=== PATIENT | male | born 1950 | race Caucasian/White ===

== ENCOUNTER 2016-06-07 | Outpatient (CLI) | payer MEDICARE, OTHER | END 2016-06-07 19:52 | disposition short-term general hospital (02) | CPT/HCPCS: A0425; A0426 ==

== ENCOUNTER 2016-06-07 09:30 | Emergency (ER) | payer MEDICARE, OTHER ==
[2016-06-07] MEDS ORDERED: POTASSIUM CHLOR 20 MEQ/100 ML 100 ML IV ONE ×2 (11:23→17:14)
[2016-06-07] MEDS ORDERED: POTASSIUM CHLORIDE 20 MEQ TABLET PO ONE (11:23)
[2016-06-07] MEDS ORDERED: FAMOTIDINE 20 MG/2 ML VIAL ONE (11:32)
[2016-06-07] MEDS ORDERED: cefTRIAXone 1 GM VIAL ONE (17:14)
[2016-06-07] MEDS ORDERED: OCTREOTIDE 500 MCG in SODIUM CHLORIDE 0.9% 100ML 95 ML IV STA (17:29)
[2016-06-07] MEDS ORDERED: OCTREOTIDE 100 MCG/ML VIAL ONE (17:34)
[2016-06-07] MEDS ORDERED: OCTREOTIDE 100 MCG/ML VIAL IV STA (17:37)
== END 2016-06-07 18:30 | disposition short-term general hospital (02) ==
DX: K92.1 Melena (principal); D64.9 Anemia, unspecified; E87.6 Hypokalemia; R18.8 Other ascites; K74.60 Unspecified cirrhosis of liver; I45.10 Unspecified right bundle-branch block
CPT/HCPCS: 36415; 36430; 74176; 80053; 83690; 84132; 85014; 85018; 85025; 85610; 85730; 86850; 86900; 86901; 86920; 93005; 96361; 96365; 96366; 96367; 96368; 96375; 96376; 99284; A9270; J2354; P9016

== ENCOUNTER 2017-09-04 07:28 | Outpatient (CLI) | payer MEDICARE, OTHER ==
[2017-09-04 08:12] LABS: CREATININE 1.3 mg/dL (0.6-1.2)
[2017-09-04] MEDS ORDERED: IOPAMIDOL-300 100 ML VIAL ONE (08:35)
[2017-09-04] MEDS ORDERED: IOPAMIDOL-300 100 ML VIAL IVP ONE (09:27)
--- NOTE | 2017-09-04 15:07 | CT Report ---
EXAM: LEFT ELBOW CT WITHOUT AND WITH CONTRAST EXAM DATE: 09/04/2017 09:28 AM. CLINICAL HISTORY: Left Antecubital area mass. Seems solid vs cystic. COMPARISON: None. TECHNIQUE: Thin-section axial images were acquired of the elbow before and after administration of in travenous contrast. IV contrast: 100 mL Isovue-300. Post-processing: Coronal and sagittal reformats. Other: None. In accordance with CT protocol optimization, one or more of the following dose reduction techniques w ere utilized for this exam: automated exposure control, adjustment of mA and/or KV based on patient s ize, or use of iterative reconstructive technique. FINDINGS: Bones: No fracture or bone lesion. Joints: Mild degenerative changes at the joint, most prominent at the ulnar trochlear joint. No large joint effusion. Musculature: Heterogeneous mass present in the musculature along the anterior and radial aspect of th e distal humerus measuring 6.7 x 7.0 x 8.0 cm. Localization limited on CT, particularly due to size. This appears centered within the brachialis or brachioradialis muscle with mass effect on the biceps muscle. Central low attenuation present, suggestive of necrosis with heterogeneous enhancement and pr ominent vascularity in the periphery. Mass results in mass effect on the radial neurovascular bundle. Evaluation of involvement of the neur ovascular bundle limited on CT. Other: Subcutaneous soft tissues are unremarkable. IMPRESSION: 1. An 8.0 cm heterogeneous enhancing mass with likely central necrosis centered in the musculature ov er the anterior and radial aspect distal humerus, concerning for soft tissue malignancy such as sarco ma. Hematoma also in the differential although thought less likely given the extent of peripheral vas cularity and enhancement. 2. Lesion results in mass effect on the radial neurovascular bundle. Evaluation for involvement of th e neurovascular bundle limited on CT. May consider MRI with IV contrast if patient is able for furthe r characterization and surgical planning. Findings discussed with Dr. Chen, ordering provider at 3 PM on 09/04/[address] Nahed RAGSDALE Referring Provider Line: [phone] SITE ID: [id number]
== END 2017-09-04 07:29 | disposition home or self-care (01) ==
LOC: LAB 07:28
PROVIDERS: ATTEND Family Medicine
DX: R22.32 Localized swelling, mass and lump, left upper limb (principal)
CPT/HCPCS: 36415; 73202; 82565; Q9967

== ENCOUNTER 2022-01-15 09:07 | Outpatient (CLI) | payer MEDICARE, OTHER | END 2022-01-15 09:08 | disposition home or self-care (01) | LOC: LAB.N 09:07 | PROVIDERS: ATTEND Ophthalmology | DX: Z01.812 Encounter for preprocedural laboratory examination (principal); H25.89 Other age-related cataract; Z20.822 Contact with and (suspected) exposure to COVID-19 ==

== ENCOUNTER 2022-01-16 08:52 | Day surgery (SDC) | payer MEDICARE, OTHER ==
[~2022-01-16 08:52] MED LIST: CYCLOPENTOLATE 1% OPHTH DROPS 2 ML ONE; KETOROLAC 0.45% OPHTH DROPS ONE; PHENYLEPHRINE 2.5% OPHTH 2 ML DROPS ONE; PROPARACAINE 0.5% OPHTH DROPS 15 ML ONE
[2022-01-16] MEDS ORDERED: LACTATED RINGERS 1,000 ML IV ONE (08:57)
--- NOTE | 2022-01-16 09:51 | ANESTHESIA ---
Pre-Anesthesia VS, & Labs - Diagnosis right eye cataract - Procedure right eye cataract extraction with IOL implant Vital Signs: Temp Pulse Resp BP Pulse Ox 36.2 C L 94 20 145/88 H 100 01/16/22 09:06 01/16/22 09:06 01/16/22 09:06 01/16/22 09:06 01/16/22 09:06 Height: 5 ft 10 in Weight (kg): 62 kg Body Mass Index: 19.5 BMI Classification: Healthy weight - NPO >8 hours Home Medications and Allergies Allergies/Adverse Reactions: Allergies Allergy/AdvReac Type Severity Reaction Status Date / Time No Known Drug Allergies Allergy Verified 01/16/22 09:13 Anes History & Medical History - Anesthetic History Anesthesia Complications: reports: No previous complications - Medical History Cardiovascular: reports: None Pulmonary: reports: None Gastrointestinal: reports: GERD, Cirrhosis Urinary: reports: None Neuro: reports: Other (nerve injury left arm) Musculoskeletal: reports: None Endocrine/Autoimmune: reports: None Skin: reports: Other Smoking Status: Current every day smoker (1 pack per day) Psychosocial: reports: Alcohol (2-3 beers every other day) 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
[2022-01-16] MEDS ORDERED: MIDAZOLAM 2 MG/2 ML VIAL ONE (10:05)
[2022-01-16] MEDS ORDERED: TRYPAN BLUE 0.5 ML SYRINGE IO ONE ×2 (10:32→10:37)
[2022-01-16] MEDS ORDERED: BSS/LIDOCAINE/EPINEPHRINE 1 ML SYRINGE IO ONE (10:33)
[2022-01-16] MEDS ORDERED: TIMOLOL 0.5% OPHTH DROPS OPTH ONE (10:33)
[2022-01-16] MEDS ORDERED: EPINEPHrine 1 MG/ML AMP IR ONE (10:33)
[2022-01-16] MEDS ORDERED: BRIMONIDINE 0.2% OPHTH DROPS 5 ML OPTH ONE (10:33)
[2022-01-16] MEDS ORDERED: VANCOMYCIN OPHTH (TOPICAL) 10 MG/ML SYRINGE TOP ONE (10:34)
[2022-01-16] MEDS ORDERED: TRIAMCIN/MOXIFLOX OPHTHALMIC 0.6 ML VIAL IO ONE ×2 (10:34→11:12)
[2022-01-16] MEDS ORDERED: PROPARACAINE 0.5% OPHTH DROPS 15 ML RIGHTEYE ONE (10:34)
[2022-01-16] MEDS ORDERED: fentaNYL 100 MCG/2 ML VIAL ONE (10:36)
[2022-01-16] MEDS ORDERED: LACTATED RINGERS 900 ML IV ONE (10:44)
--- NOTE | 2022-01-16 10:46 | OPERATIVE REPORT ---
Operative Report - Other Other Information/Narrative: Date of Surgery: 01/16/22 Preop Dx: Visually significant cataract right eye. This was the first cataract surgery. Postop Dx: Same Procedure: Phacoemulsification with posterior chamber intraocular lens implant right eye Surgeon: Dr. Artemio Starkey Anesthesia: Monitored anesthesia care Complications: None Operative Indications: This is a 71-year-old M with progressive vision loss in the right eye due to 4+ brunescent nuclear sclerotic and 4+ cortical mature cataract. Best corrected visual acuity was hand motion with glare to light perception vision in the right eye. Indications for surgery were: - Overall decrease in vision - Difficulty reading - Difficulty seeing words, closed captions, or game scores on TV - Difficulty seeing street signs - Difficulty driving in low light or at night - Difficulty driving at night because of headlights from other vehicles - Difficulty with glare or bright lights in any situation The patient was consented at length concerning the risks and benefits of cataract surgery after which the patient expressed a desire to proceed with surgery. Operative Procedure: The patient was taken into OR#3 and placed under monitored anesthesia care. A surgical time-out was conducted confirming correct patient, correct procedure, and correct surgical site. The patient was given topical anesthesia and then prepped and draped in the usual sterile fashion. The eye was entered at the 6 and 3 oclock positions. Intracameral Shugarcaine was injected into the anterior chamber followed by a dispersive viscoelastic. A continuous-tear curvilinear capsulorhexis was performed. The nucleus was hydrodissected and phacoemulsified. The cortex was evacuated using automated infusion and aspiration. However, a zonular dehiscence occurred temporally toward the end of cortical clean-up. No vitreous presented and it was determined that a one-piece IOL would likely be stable in the capsule. A cohesive viscoelastic was injected into the capsular bag and a 24.5 diopter intraocular lens was inserted into the bag. Infusion and aspiration were used to evacuate the viscoelastic materials from the eye. The wounds were hydrated and the eye inflated to physiologic pressure using balanced salt solution. Approximately 0.25ml of a mixture of triamcinolone and moxifloxacin was injected trans-sclerally into the vitreous in the inferotemporal quadrant using a 30 gauge cannula. An additional 0.55ml of a mixture of triamcinolone and vancomycin was injected subconjunctivally in the superior quadrant for infection and inflammation prophylaxis. Wound integrity was checked with Weck-Cally sponges and there was no vitreous to either wound. . The patient was taken from the operating room in good condition and given post-op instructions.
[2022-01-16 11:09] VITALS: BP 120/70
[2022-01-16] MEDS ORDERED: TIMOLOL 0.5% OPHTH DROPS ONE (11:12)
[2022-01-16] MEDS ORDERED: BRIMONIDINE 0.2% OPHTH DROPS 5 ML ONE (11:12)
[2022-01-16] MEDS ORDERED: EPINEPHrine 1 MG/ML AMP ONE (11:12)
[2022-01-16] MEDS ORDERED: VANCOMYCIN OPHTH (TOPICAL) 10 MG/ML SYRINGE ONE (11:12)
[2022-01-16] MEDS ORDERED: BSS/LIDOCAINE/EPINEPHRINE 1 ML VIAL ONE (11:12)
--- NOTE | 2022-01-16 14:30 | ANESTHESIA POST OP EVALUATION ---
Anesthesia Post Eval - Post Anesthesia Eval Vitals: Last Vital Signs Temp 36.8 C 01/16/22 11:08 Pulse 82 01/16/22 11:08 Resp 6 L 01/16/22 11:08 BP 120/70 01/16/22 11:08 Pulse Ox 100 01/16/22 11:08 CV Function Including HR & BP: Stable Pain Control: Satisfactory Nausea & Vomiting: Negative Mental Status: Baseline Respiratory Status: Airway Patent Hydration Status: Satisfactory Anesthesia Complications: None
== END 2022-01-16 08:53 | disposition home or self-care (01) ==
LOC: SDS 08:52
PROVIDERS: ATTEND Ophthalmology
DX: H25.89 Other age-related cataract (principal); F17.200 Nicotine dependence, unspecified, uncomplicated
CPT/HCPCS: 66984; A9270; J3490; J7120

== ENCOUNTER 2022-05-21 07:56 | Outpatient (CLI) | payer MEDICARE, OTHER | END 2022-05-21 07:57 | disposition home or self-care (01) | LOC: LAB.N 07:56 | PROVIDERS: ATTEND Ophthalmology | DX: Z01.812 Encounter for preprocedural laboratory examination (principal); H25.812 Combined forms of age-related cataract, left eye; Z20.822 Contact with and (suspected) exposure to COVID-19 ==

== ENCOUNTER 2022-05-22 06:28 | Day surgery (SDC) | payer MEDICARE, OTHER ==
--- NOTE | 2022-05-22 06:53 | ANESTHESIA ---
Pre-Anesthesia VS, & Labs - Diagnosis L senile combined cataract - Procedure extraction L cataract wIOL Height: 5 ft 10 in - NPO >8 hours - Lab Results Lab results reviewed: No Home Medications and Allergies Allergies/Adverse Reactions: Allergies Allergy/AdvReac Type Severity Reaction Status Date / Time No Known Drug Allergies Allergy Verified 05/22/22 07:26 Anes History & Medical History - Anesthetic History Anesthesia Complications: reports: No previous complications Family history of Anesthesia Complications: Denies Family history of Malignant Hyperthermia: Denies - Medical History Cardiovascular: reports: None Pulmonary: reports: None Gastrointestinal: reports: GERD, Cirrhosis Urinary: reports: None Neuro: reports: Other (nerve injury left arm) Musculoskeletal: reports: None Endocrine/Autoimmune: reports: None Skin: reports: Other Smoking Status: Current every day smoker (1 pack per day) - Surgical History Eyes Ears Nose Throat (EENT): reports: Cataracts Exam General: Alert, Oriented x3, Cooperative Dental: Poor dentition Mouth Openin Fingerbreadth Neck Mobility: Normal Mallampati classification: II Thyromental Distance: 4-6 cm Respiratory: Lungs clear, Normal breath sounds, No respiratory distress Cardiovascular: Regular rate Neurological: Normal speech Mental/Cognitive Status: Alert/Oriented X3, Normal for patient Cognitive Status: Within normal limits Plan Anesthesia Type: MAC Consent for Procedure(s) Verified and Reviewed: Yes Code Status: Attempt Resuscitation ASA classification: 2-Mild systemic disease Is this case an emergency?: No
[2022-05-22] MEDS ORDERED: LACTATED RINGERS 1,000 ML IV ONE ×2 (06:56→08:36)
[2022-05-22] MEDS ORDERED: MIDAZOLAM 2 MG/2 ML VIAL ONE (07:22)
[2022-05-22] MEDS ORDERED: fentaNYL 100 MCG/2 ML VIAL ONE (07:55)
[2022-05-22] MEDS ORDERED: BRIMONIDINE 0.2% OPHTH DROPS 5 ML OPTH ONE (08:11)
[2022-05-22] MEDS ORDERED: TIMOLOL 0.5% OPHTH DROPS OPTH ONE (08:12)
[2022-05-22] MEDS ORDERED: BSS/LIDOCAINE/EPINEPHRINE 1 ML SYRINGE IO ONE (08:12)
[2022-05-22] MEDS ORDERED: VANCOMYCIN OPHTH (TOPICAL) 10 MG/ML SYRINGE TOP ONE (08:12)
[2022-05-22] MEDS ORDERED: EPINEPHrine 1 MG/ML AMP IR ONE (08:12)
[2022-05-22] MEDS ORDERED: PROPARACAINE 0.5% OPHTH DROPS 15 ML EACHEYE ONE (08:12)
[2022-05-22] MEDS ORDERED: TRIAMCIN/MOXIFLOX OPHTHALMIC 0.6 ML VIAL IO ONE ×3 (08:12→10:36)
--- NOTE | 2022-05-22 08:27 | OPERATIVE REPORT ---
Operative Report - Other Other Information/Narrative: Date of Surgery: 05/22/22 Preop Dx: Visually significant cataract left eye. Cataract surgery was performed in the right eye on . Postop Dx: Same Procedure: Phacoemulsification with posterior chamber intraocular lens implant left eye Surgeon: Dr. Artemio Starkey Anesthesia: Monitored anesthesia care Complications: None Operative Indications: This is a 72-year-old M with progressive vision loss in the left eye due to 3+ nuclear sclerotic and 3+ posterior subcapsular cataract. Best corrected visual acuity was 20/30 with glare to light perception vision in the left eye. Indications for surgery were: - Overall decrease in vision - Difficulty reading - Difficulty seeing words, closed captions, or game scores on TV - Difficulty driving in low light or at night - Difficulty driving at night because of headlights from other vehicles - Difficulty with glare or bright lights in any situation The patient was consented at length concerning the risks and benefits of cataract surgery after which the patient expressed a desire to proceed with surgery. Operative Procedure: The patient was taken into OR#3 and placed under monitored anesthesia care. A surgical time-out was conducted confirming correct patient, correct procedure, and correct surgical site. The patient was given topical anesthesia and then prepped and draped in the usual sterile fashion. The eye was entered at the 6 and 3 oclock positions. Intracameral Shugarcaine was injected into the anterior chamber followed by a dispersive viscoelastic. A continuous-tear curvilinear capsulorhexis was performed. The nucleus was hydrodissected and phacoemulsified. The cortex was evacuated using automated infusion and aspiration. A cohesive viscoelastic was injected into the capsular bag and a 24.5 diopter intraocular lens was inserted into the bag. Infusion and aspiration were used to evacuate the viscoelastic materials from the eye. The wounds were hydrated and the eye inflated to physiologic pressure using balanced salt solution. Approximately 0.25ml of a mixture of triamcinolone and moxifloxacin was injected trans-sclerally into the vitreous in the inferotemporal quadrant using a 30 gauge cannula. An additional 0.55ml of a mixture of triamcinolone and moxifloxacin was injected subconjunctivally in the superior quadrant for infection and inflammation prophylaxis. Wound integrity was checked with Weck-Cally sponges. The patient was taken from the operating room in good condition and given post-op instructions.
[2022-05-22 08:39] VITALS: BP 100/73
--- NOTE | 2022-05-22 09:13 | ANESTHESIA POST OP EVALUATION ---
Anesthesia Post Eval - Post Anesthesia Eval Vitals: Last Vital Signs Temp 36.5 C 05/22/22 08:38 Pulse 90 05/22/22 08:38 Resp 16 05/22/22 08:38 BP 100/73 05/22/22 08:38 Pulse Ox 99 05/22/22 08:38 O2 Flow Rate 0 05/22/22 06:56 CV Function Including HR & BP: Stable Pain Control: Satisfactory Nausea & Vomiting: Negative Mental Status: Baseline Respiratory Status: Airway Patent Hydration Status: Satisfactory Anesthesia Complications: None
[2022-05-22] MEDS ORDERED: EPINEPHrine 1 MG/ML AMP ONE (10:26)
[2022-05-22] MEDS ORDERED: BRIMONIDINE 0.2% OPHTH DROPS 5 ML ONE (10:27)
[2022-05-22] MEDS ORDERED: timoloL maleate 0.5% OPHTH DROPS (10ML) ONE (10:27)
[2022-05-22] MEDS ORDERED: BSS/LIDOCAINE/EPINEPHRINE 1 ML VIAL ONE (10:27)
[2022-05-22] MEDS ORDERED: VANCOMYCIN OPHTH (TOPICAL) 10 MG/ML SYRINGE ONE (10:27)
== END 2022-05-22 06:29 | disposition home or self-care (01) ==
LOC: SDS 06:28
PROVIDERS: ATTEND Ophthalmology
DX: H25.812 Combined forms of age-related cataract, left eye (principal); Z98.41 Cataract extraction status, right eye; F17.210 Nicotine dependence, cigarettes, uncomplicated
CPT/HCPCS: 66984; A9270; J3490; J7120